=== PATIENT | male | born 1965 | race Hispanic/Latino ===

== ENCOUNTER → 2021-03-27 | Day surgery (SDC) | payer OTHER ==
[~2021-03-27] MED LIST: IBUPROFEN800 MG PO; NEXIUM40 MG PO; OR PHACO EYE KIT ONE; PREOP PHACO EYE KIT ONE
[2021-03-27 15:25] VITALS: BP 154/94
== END | disposition home or self-care (01) ==
LOC: OR 12:17
PROVIDERS: ATTEND Ophthalmology
DX: H25.12 Age-related nuclear cataract, left eye (principal); K21.9 Gastro-esophageal reflux disease without esophagitis; Z01.812 Encounter for preprocedural laboratory examination; Z20.822 Contact with and (suspected) exposure to COVID-19
CPT/HCPCS: 66984; U0002